=== PATIENT | male | born 1965 | race Caucasian/White ===

== ENCOUNTER 2019-01-09 22:17 | Emergency (ER) | payer OTHER ==
[~2019-01-09] VITALS: Ht 172.7 cm; Wt 90.3 kg
[~2019-01-09 22:17] MED LIST: NO NEW MEDS
[2019-01-09 22:28] VITALS: Ht 172.7 cm; Wt 90.3 kg
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
[2019-01-10] MEDS ORDERED: ACETAMINOPHEN 325 MG TAB PO ONE (01:00)
[2019-01-10] MEDS ORDERED: IBUPROFEN 200 MG TAB PO ONE (01:00)
[2019-01-10] MEDS ORDERED: LORAZEPAM 0.5 MG TAB PO ONE (01:00)
[2019-01-10] MEDS ORDERED: ACET325T33 PO (01:18)
[2019-01-10] MEDS ORDERED: LORA-441 PO (01:18)
[2019-01-10] MEDS ORDERED: IBUP-1561 PO (01:18)
[2019-01-10 02:39] VITALS: BP 114/79; PULSE 72; RESP 16
== END 2019-01-10 02:39 | disposition home or self-care (01) ==
LOC: FTE 22:17
DX: S20.219A Contusion of unspecified front wall of thorax, initial encounter (principal); V59.49XA Driver of pick-up truck or van injured in collision with other motor vehicles in traffic accident, initial encounter
CPT/HCPCS: 71046; Z7502; Z7610